=== PATIENT | male | born 1990 | race Caucasian/White ===

== ENCOUNTER 2016-11-22 18:14 | Emergency (ER) | payer SELFPAY ==
[2016-11-22] MEDS ORDERED: LORTAB 10-325 M1 TAB PO (20:01)
[2016-11-22 20:19] VITALS: BP 116/58
== END 2016-11-22 20:20 | disposition home or self-care (01) | DRG 159 ==
LOC: ED 18:14
DX: K04.7 Periapical abscess without sinus (principal); K08.89 Other specified disorders of teeth and supporting structures